=== PATIENT | female | born 1990 | race Caucasian/White ===

== ENCOUNTER 2018-08-30 20:36 | Emergency (ER) | payer OTHER ==
[~2018-08-30] VITALS: Ht 175.3 cm; Wt 131.5 kg
[2018-08-30 20:53] LABS: URINE BILIRUBIN NEGATIVE (Negative); URINE BLOOD NEGATIVE (Negative); URINE CLARITY CLEAR; URINE COLOR YELLOW; URINE GLUCOSE-RANDOM* NEGATIVE (Negative); URINE KETONES NEGATIVE (Negative); URINE LEUKOCYTES-REFLEX NEGATIVE (Negative); URINE NITRITE-REFLEX NEGATIVE (Negative); URINE PROTEIN (DIPSTICK) NEGATIVE (Negative); URINE UROBILINOGEN 0.2 E.U./dl (0.2-1.0)
[2018-08-30] MEDS ORDERED: BUSPIRONE HCL10 MG PO (20:53)
[2018-08-30] MEDS ORDERED: WELLBUTRIN SR150 MG PO (20:53)
[2018-08-30] MEDS ORDERED: PHENTERMINE HCL15 MG PO (20:54)
[2018-08-30] MEDS ORDERED: SPIRONOLACTONE25 M1 PO (20:54)
[2018-08-30] MEDS ORDERED: NORFLEX100 MG PO (21:14)
[2018-08-30] MEDS ORDERED: NAPROSYN500 MG PO (21:14)
[2018-08-30] MEDS ORDERED: ULTRAM 50MG TAB50 MG PO (21:14)
[2018-08-30 21:33] VITALS: BP 132/74
== END 2018-08-30 21:35 | disposition home or self-care (01) ==
LOC: ER 20:36
PROVIDERS: Emergency Medicine
DX: S39.012A Strain of muscle, fascia and tendon of lower back, initial encounter (principal); X50.1XXA Overexertion from prolonged static or awkward postures, initial encounter; Y93.89 Activity, other specified; Y92.89 Other specified places as the place of occurrence of the external cause; Y99.8 Other external cause status